=== PATIENT | female | born 1960 | race Caucasian/White ===

== ENCOUNTER 2019-02-06 08:42 | Day surgery (SDC) | payer OTHER ==
[2019-02-05 10:00] VITALS: BMI 29.7
--- NOTE | 2019-02-05 14:06 | HP ---
HISTORY OF PRESENT ILLNESS: Ms. Garcia is here today to discuss several year history of lower back pain associated with right lower extremity pain that fits well in L5 fashion, most profound over the right lateral hip. She has noted progressively worsening pain since last January. She denies numbness, but does get some tingling particularly in the right lower extremity. She has treated this with physical therapy and epidural steroid injections, which have all provided marginal of any relief. Pain worsens over the roughly sitting and bending. MRI from [facility] reveals grade 1 borderline 2 slip at L5-S1 with associated bilateral pars defects, imposing severe bilateral neuroforaminal narrowing at L5, this fits her symptoms very well. PAST MEDICAL HISTORY: Significant for hypercholesterolemia, chronic pain syndrome, anxiety, seasonal allergies, and hypothyroidism. PAST SURGICAL HISTORY: Hysterectomy and section. CURRENT MEDICATIONS: 1. Glucosamine. 2. Sertraline. 3. Levothyroxine. 4. Pravastatin. 5. Gabapentin. 6. Montelukast. 7. Meloxicam. ALLERGIES: NO KNOWN DRUG ALLERGIES. PHYSICAL EXAMINATION: GENERAL: The patient is alert and oriented x3. MUSCULOSKELETAL: Gait is mildly antalgic. Lower extremities are normal. She does have a positive bilateral straight leg raise. ASSESSMENT: Pars defect, spondylolisthesis, and lumbar radiculopathy. PLAN: Dr. Howell met with the patient, reviewed imaging, advocated for L5-S1 laminectomies and fusion. He explained to the patient the risks, benefits, and alternatives to the procedure. The patient expressed understanding and elected to move forward with surgery as discussed. I do believe the patient is mentally competent and capable of making medical decisions for herself. We will move forward with surgery as planned. Job ID: [id number]
[2019-02-06] MEDS ORDERED: Ketorolac Tromethamine 30 MG/ML VIAL ONE (10:55)
[2019-02-06] MEDS ORDERED: Dexamethasone 20 MG/5 ML VIAL ONE (10:55)
[2019-02-06] MEDS ORDERED: PHENYLEPHRINE-NS 100 MCG/ML 10 ML SYRINGE ONE (10:55)
[2019-02-06] MEDS ORDERED: Metoclopramide HCl 10 MG/2 ML VIAL ONE (10:55)
[2019-02-06] MEDS ORDERED: PROPOFOL 200 MG/20 ML VIAL ONE (10:55)
[2019-02-06] MEDS ORDERED: Ondansetron PF 4 MG/2 ML Vial ONE (10:55)
[2019-02-06] MEDS ORDERED: Rocuronium Bromide 10 MG/ML (10ML VIAL) ONE (10:55)
[2019-02-06] MEDS ORDERED: Lidocaine 1% PF 5 ML VIAL ONE (10:55)
[2019-02-06] MEDS ORDERED: ePHEDrine/0.9% NaCl/PF SYRINGE 50 mg/10 ml ONE (10:55)
[2019-02-06] MEDS ORDERED: Glycopyrrolate 0.2 MG/ML 5 ML SYRINGE ONE (10:55)
[2019-02-06] MEDS ORDERED: Midazolam HCl 2 mg/2 ml Vial ONE (10:59)
[2019-02-06] MEDS ORDERED: Fentanyl 100 MCG/2 ML VIAL ONE (11:44)
[2019-02-06] MEDS ORDERED: Bupivacaine PF 0.5% 30 ML VIAL ONE (11:44)
[2019-02-06] MEDS ORDERED: Thrombin 5000 UNITS/5 ML VIAL ONE (11:44)
[2019-02-06] MEDS ORDERED: Morphine 2 MG/ML SYRINGE ONE (15:48)
[2019-02-06] MEDS ORDERED: Cyclobenzaprine 10 MG TAB ONE (15:48)
[2019-02-06] MEDS ORDERED: HYDROcodone/Acetaminophen 7.5/325 mg Tablet ONE (16:15)
--- NOTE | 2019-02-09 10:10 | OP ---
DATE OF PROCEDURE: 02/06/2019 SUPERVISOR QUALITY CONTROL: Lion Jackson PA-C INDICATION: Pain. DIAGNOSIS: L5 upon S1 with bilateral spondylolysis with L5 upon S1 spondylolisthesis. PROCEDURES PERFORMED: Bilateral facetectomy and posterolateral instrumented fusion with placement of allograft and placement of autograft. ANESTHESIA: General. DESCRIPTION OF PROCEDURE: The patient was brought into the operating room and placed under general anesthesia. She was flipped from the supine to prone position on the operating room table. A linear incision was planned over the L5 through S1 segment. After prepping and draping and after an appropriate perioperative pause, the incision was created. The soft tissues were swept away from midline and a C-arm image was obtained to confirm the appropriate level. At L5 through S1, we identified a highly mobile segment with associated bilateral pars defects. Bilateral facetectomies were performed, which removed the fractured portion as well. The pedicles at L5 and S1 were identified bilaterally and pedicle screws were placed bilaterally with the aid of C-arm fluoroscopy. An intraoperative 3D CT scan was then performed to ensure appropriate placement of hardware. Rods were then placed across the screw heads and final tightened under slight degree of distraction. Allograft and autograft material were then placed within the lateral confines of the instrumentation construct. The wound was then irrigated. Hemostasis was maintained throughout. The wound was then closed in anatomic layers and a pressure dressing was applied. There were no known procedural complications. Job ID: [id number]
== END 2019-02-06 18:00 | disposition home or self-care (01) ==
LOC: SDC 08:42
PROVIDERS: ATTEND Neurological Surgery
DX: M43.16 Spondylolisthesis, lumbar region (principal); M54.16 Radiculopathy, lumbar region; E03.9 Hypothyroidism, unspecified; E78.00 Pure hypercholesterolemia, unspecified; F41.9 Anxiety disorder, unspecified; G89.4 Chronic pain syndrome; Z79.899 Other long term (current) drug therapy
CPT/HCPCS: 76000; C1713; J0131; J0690; J1100; J1885; J2001; J2250; J2270; J2405; J2704; J2765; J3010; S0020

== ENCOUNTER 2019-04-09 09:42 | Outpatient (CLI) | payer OTHER ==
--- NOTE | 2019-04-09 10:42 | CT ---
CT LUMBAR SPINE WITHOUT CONTRAST: HISTORY: Lumbar radiculopathy. History of surgery on 02/06/2019. Back pain. FINDINGS: There is symmetric attenuation of the paraspinal muscles. Nonaneurysmal, atherosclerotic aorta is not ed. Incompletely evaluated exophytic hypodensity emanates from the left renal cortex with attenuation shima fficient of 11 Hounsfield units suggesting a partially visualized cyst. There are 4 lumbar-type vertebrae. Lumbar spine vertebral body heights are maintained. There is no fr acture. There are bilateral transpedicular screws at L4 and S1. There is no perihardware lucency. Bilateral pars defects at L4. Spondylolisthesis: Approximately 1 cm of anterolisthesis of L4 upon S1. Limited evaluation the contents of the central spinal canal and neural foramina due to technique. T10-T11, T11-T12 and T12-L1: No significant central canal stenosis or significant neural foraminal na rrowing. L1-L2: No significant central canal stenosis or significant neural foraminal narrowing. L2-L3: Minimal broad-based disc bulge. No significant central canal stenosis. Neural foramina are pat ent. L3-L4: Posterior decompressive laminectomy. Broad-based disc bulge abuts the thecal sac. There is no significant central canal stenosis. Right neural foramen is patent. Mild left foraminal narrowing due to disc material. L5/S1: Posterior laminectomy defect. There is moderate to severe loss of disc space height. No signif icant central canal stenosis. Moderate bilateral foraminal narrowing. IMPRESSION: 1. Approximately 1 cm of anterolisthesis of L4 for upon S1. There are bilateral pars defects. Uncomp licated lumbar fusion. 2. Varying degrees of central canal stenosis and neural foraminal narrowing as above. 3. Note, there are 4 lumbar-type vertebrae. Transcribed Date/Time: 04/09/2019 10:56 AM
== END 2019-04-09 09:43 | disposition home or self-care (01) ==
LOC: TBSIIMAG 09:42
PROVIDERS: ATTEND Neurological Surgery
DX: M54.16 Radiculopathy, lumbar region (principal); M48.061 Spinal stenosis, lumbar region without neurogenic claudication; M43.17 Spondylolisthesis, lumbosacral region; M48.07 Spinal stenosis, lumbosacral region; Z98.1 Arthrodesis status
CPT/HCPCS: 72131